=== PATIENT | male | born 1985 ===

== ENCOUNTER 2017-12-07 22:19 | Emergency (ER) | payer SELFPAY ==
[2017-12-07] MEDS ORDERED: Sodium Chloride 0.9% 1,000 ML IV STA (22:43)
--- NOTE | 2017-12-07 22:47 | ED PDOC ---
HPI: General Adult Time Seen by Provider: 12/07/17 22:34 Chief Complaint (Nursing): Fever Chief Complaint (Provider): fever History Per: Patient, Internal Medicine Doctor History/Exam Limitations: no limitations Onset/Duration Of Symptoms: Days (7), Waxing/Waning Current Symptoms Are (Timing): Still Present Additional Complaint(s): 32 y/o male presents with intermittent tactile fevers x 1 week. Associated headaches, throat pain, cough, and "burning" to both eyes. Patient states he has been taking Tylenol when he feels hot, but has not taken it since yesterday. Patient states Tylenol does not help headache, but advil does, but he has not taken that since yesterday. Denies ear pain, neck back, chest pain, shortness of breath, palpitations, abdominal pain, recent travel, sick contacts. Past Medical History Reviewed: Historical Data, Nursing Documentation, Vital Signs Vital Signs: Last Vital Signs Temp 98.6 F 12/08/17 01:06 Pulse 88 12/08/17 01:06 Resp 17 12/08/17 01:06 BP 116/78 12/08/17 01:06 Pulse Ox 98 12/08/17 01:06 - Medical History PMH: No Chronic Diseases - Surgical History Surgical History: No Surg Hx - Family History Family History: States: No Known Family Hx - Living Arrangements Living Arrangements: Alone - Home Medications Home Medications: Ambulatory Orders Medication Instructions Recorded Azithromycin 250 mg PO DAILY #4 tablet 12/08/17 - Allergies Allergies/Adverse Reactions: Allergies Allergy/AdvReac Type Severity Reaction Status Date / Time No Known Allergies Allergy Verified 04/12/16 15:11 Review of Systems ROS Statement: Except As Marked, All Systems Reviewed And Found Negative Constitutional: Positive for: Fever ENT: Positive for: Throat Pain Respiratory: Positive for: Cough Neurological: Positive for: Headache Physical Exam - Reviewed Nursing Documentation Reviewed: Yes Vital Signs Reviewed: Yes - Physical Exam Appears: Positive for: Well, Non-toxic, No Acute Distress Head Exam: Positive for: ATRAUMATIC, NORMAL INSPECTION, NORMOCEPHALIC Skin: Positive for: Normal Color Eye Exam: Positive for: Normal appearance ENT: Positive for: Pharyngeal Erythema. Negative for: Tonsillar Exudate, Tonsillar Swelling Neck: Positive for: Normal, Painless ROM Cardiovascular/Chest: Positive for: Regular Rate, Rhythm Respiratory: Positive for: Normal Breath Sounds Gastrointestinal/Abdominal: Positive for: Normal Exam Back: Positive for: Normal Inspection Extremity: Positive for: Normal ROM Neurologic/Psych: Positive for: Alert, Oriented - Laboratory Results Result Diagrams: 12/07/17 23:04 12/07/17 23:04 - ECG O2 Sat by Pulse Oximetry: 97 - Radiology X-Ray: Viewed By Co X-Ray Interpretation: Infiltrates (RLL ) - Progress ED Course And Treament: labs, strep, flu, chest xray, ibuprofen, IV fluids On re-eval, patient states he is feeling better. Patient educated on findings, discharged with rx Azithromycin (first dose given in ED) Advised Tylenol/Ibuprofen PRN fever. Fluids. Rest. Follow up [facility]. Return precautions given. Disposition - Clinical Impression Clinical Impression: Pneumonia - Patient ED Disposition Is Patient to be Admitted: No Counseled Patient/Family Regarding: Studies Performed, Diagnosis, Need For Followup, Rx Given - Disposition Referrals: [facility] [Outside] Disposition: Routine/Home Disposition Time: 01:13 Condition: IMPROVED Prescriptions: Azithromycin 250 mg PO DAILY #4 tablet Instructions: Pneumonia, Adult (DC) Forms: [employer] (Hungarian) Print Language: CITIZEN OF [place]
[2017-12-07 23:33] LABS: ALB/GLOB RATIO 1.1 (1.0-2.1); ALBUMIN 4.3 g/dL (3.5-5.0); ALT/SGPT 60 U/L (21-72); AST/SGOT 40 U/L (17-59); BLOOD UREA NITROGEN 15 mg/dl (9-20); CALCIUM 9.2 mg/dL (8.4-10.2); GFR AFRICAN-AMERICAN > 60; GFR NON-AFRICAN AMERICAN > 60
[2017-12-07 23:34] LABS: BASO % 1.3 % (0.0-2.0); EOS % 0.4 % (0.0-4.0); HEMOGLOBIN 14.9 g/dL (12.0-18.0); LYMPH # 1.1 K/uL (1.0-4.3); LYMPH % 39.7 % (20.0-40.0); MEAN CELL VOLUME 82.8 fl (80.0-94.0); MEAN CORPUSCULAR HEMOGLOBIN 27.5 pg (27.0-31.0); MEAN CORPUSCULAR HGB CONC 33.2 g/dL (33.0-37.0); MEAN PLATELET VOLUME 9.4 fl (7.2-11.7); MONO # 0.4 K/uL (0.0-0.8); MONO % 16.7 % (0.0-10.0); NEUT # 1.1 K/uL (1.8-7.0); NEUT % 41.9 % (50.0-75.0); NRBC % 0.5 % (0.0-0.0); RBC 5.44 Mil/uL (4.40-5.90); RED CELL DISTRIBUTION WIDTH 14.1 % (11.5-14.5); WHITE BLOOD COUNT 2.7 K/uL (4.8-10.8)
[2017-12-07 23:43] LABS: VENOUS BLOOD GAS BASE EXCESS 1.2 mmol/L (0.0-2.0); VENOUS BLOOD GAS PCO2 47 mmHg (40-60); VENOUS BLOOD GAS PO2 26 mm/Hg (30-55); VENOUS BLOOD PH 7.37 (7.32-7.43)
[2017-12-08 01:07] VITALS: BP 116/78; PULSE 88; RESP 17; TEMP 98.6
[2017-12-08 01:13] VITALS: O2SAT 97
--- NOTE | 2017-12-08 09:51 | RAD ---
HISTORY: fever, cough COMPARISON: No prior. TECHNIQUE: Chest PA and lateral FINDINGS: LUNGS: No active pulmonary disease. PLEURA: No significant pleural effusion identified. No pneumothorax apparent. CARDIOVASCULAR: Normal. OSSEOUS STRUCTURES: No significant abnormalities. VISUALIZED UPPER ABDOMEN: Normal. OTHER FINDINGS: None. IMPRESSION: No active disease.
== END 2017-12-08 01:17 | disposition home or self-care (01) ==
LOC: H.ER 22:19
DX: J18.9 Pneumonia, unspecified organism (principal)
CPT/HCPCS: 71046; 80053; 82803; 85025; 87040; 87070; 87430; 87804; 99284; J7040